=== PATIENT | female | born 1990 | race African-American/Black ===

== ENCOUNTER 2021-09-16 06:17 | Emergency (ER) | payer MEDICAID, OTHER ==
[~2021-09-16] VITALS: Ht 154.9 cm; Wt 97.5 kg
[2021-09-16 06:36] VITALS: BP 109/69
[2021-09-16 09:17] LABS: Urine Bacteria NONE SEEN /hpf (None Seen); Urine Blood Negative /uL (Negative); Urine Mucus FEW (None Seen); Urine Specific Gravity 1.026 (1.001-1.035); Urine WBC 2 /hpf (0 - 5)
== END 2021-09-16 13:46 | disposition left against medical advice (07) ==
LOC: ER 06:17
DX: Z48.815 Encounter for surgical aftercare following surgery on the digestive system (principal); R10.33 Periumbilical pain
CPT/HCPCS: 81001

== ENCOUNTER 2025-01-12 20:49 | Emergency (ER) | payer MEDICAID ==
[~2025-01-12] VITALS: Ht 152.4 cm; Wt 124.0 kg
[2025-01-12] MEDS ORDERED: DIPH25CA66 PO (21:41)
[2025-01-12] MEDS ORDERED: PRED20TA2 PO (21:41)
--- NOTE | 2025-01-12 21:41 | ED.PDOC ---
HPI Allergic reaction HPI Comments 34-YEAR-OLD FEMALE PRESENTS TO ER WITH COMPLAINTS OF RASH X3 DAYS. PATIENT REPORTS THAT SHE HAS BEEN EXPERIENCING A ITCHY RASH TO UPPER BACK WITH RADIATION TOWARDS RIGHT ARMPIT X3 DAYS. STATES THAT SHE HAS BEEN USING TOPICAL "NEOSPORIN" ON THE RASH WITHOUT RELIEF AND STATES THAT THE RASH DEVELOPED "SHORTLY" AFTER SHE STARTED USING A NEW LAUNDRY DETERGENT. PATIENT PRESENTS TO ER AMBULATORY ON ARRIVAL, WITH STEADY GAIT, IN NO DISTRESS. DENIES FEVER, BODY ACHES, CHILLS, NAUSEA/VOMITING, SHORTNESS OF BREATH, KNOWN ALLERGIES OR ANY FURTHER SYMPTOMS/COMPLAINTS Chief Complaint: Rash Time Seen by MD: 20:52 Primary Care Provider: ANJU Lee Notes: Nurses Notes Allergies: Coded Allergies: NO KNOWN ALLERGIES (Unverified , 01/12/25) Home Meds Active Scripts Diphenhydramine Hcl (Benadryl Allergy) 25 Mg Cap, 2 CAP PO Q6HPRN, #30 CAP 0 Refills Prov:MATI TALAMANTES 01/12/25 Prednisone (Prednisone) 20 Mg Tab, 20 MG PO BID for 5 Days, #10 TAB 0 Refills Prov:MATI TALAMANTES 01/12/25 Information Source: Patient Mode of Arrival: Ambulatory Past Medical History Surgical History: Cholecystectomy, Hernia Repair 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 History Family History Family History: Unknown Social History Smoker: Non-Smoker Alcohol: Denies ETOH Use Drugs: Denies Drug Use Lives In: Home Constitutional: denies: chills, diaphoresis, fatigue, fever, malaise, sweats, weakness, others EENTM: denies: blurred vision, double vision, ear bleeding, ear discharge, ear drainage, ear pain, ear ringing, eye pain, eye redness, hearing loss, mouth pain, mouth swelling, nasal discharge, nose bleeding, nose congestion, nose pain, photophobia, tearing, throat pain, throat swelling, voice changes, others Respiratory: denies: cough, hemoptysis, orthopnea, SOB at rest, shortness of breath, SOB with excertion, stridor, wheezing, others Cardiovascular: denies: chest pain, dizzy spells, diaphoresis, Dyspnea on exertion, edema, irregular heart beat, left arm pain, lightheadedness, palpitations, PND, syncope, others Gastrointestinal: denies: abdomen distended, abdominal pain, blood streaked bowels, constipated, diarrhea, dysphagia, difficulty swallowing, hematemesis, melena, nausea, poor appetite, poor fluid intake, rectal bleeding, rectal pain, vomiting, others Genitourinary: denies: abnormal vagina bleeding, burning, dyspareunia, dysuria, flank pain, frequency, hematuria, incontinence, pain, , vagina discharge, urgency, others Neurological: denies: dizziness, fainting, headache, left sided numbness, left sided weakness, numbness, paresthesia, pre-existing deficit, right sided numbness, right sided weakness, seizure, speech problems, tingling, tremors, weakness, others Musculoskeletal: denies: back pain, gout, joint pain, joint swelling, muscle pain, muscle stiffness, neck pain, others Integumetry: reports: others ( STATED IN HPI) Allergic/Immunocompromised: reports: others ( STATED IN HPI) Hematologic/Lymphatic: denies: anemia, blood clots, easy bleeding, easy bruising, swollen glands, others Endocrine: denies: excessive hunger, excessive sweating, excessive thirst, excessive urination, flushing, intolerance to cold, intolerance to heat, unexplained weight gain, unexplained weight loss, others Psychiatric: denies: anxiety, bipolar disorder, depression, hopeless, panic disorder, schizophrenia, sleepless, suicidal, others Physical Exam General Appearance: No Apparent Distress HEENT: Normal ENT Inspection, PERRL/EOMI, Pharynx Normal Neck: Full Range of Motion, Non-Tender, Normal Respiratory: Chest Non-Tender, Lungs Clear, No Accessory Muscle Use, No Respi ratory Distress, Normal Breath Sounds Cardiovascular: No Murmur, No Gallop, Regular Rate/Rhythm Breast Exam: Deferred Gastrointestinal: NOT DONE Genitalia: Deferred Pelvic: Deferred Rectal: Deferred Extremities: Normal capillary refill, Normal range of motion Neurologic: Alert, oil pit attendant II-XII nml as Tested, No Motor Deficits, Normal Affect, Normal Mood, No Sensory Deficits Cerebellar Function: Normal Reflexes: Normal Skin: Dry, Warm, Other (MILD URTICARIA NOTED TO RIGHT UPPER BACK) Peripheral Pulses: 2+ Radial (R), 2+ Radial (L), 2+ Brachial (R), 2+ Brachial (L) Lymphatic: No Adenopathy Was a procedure done? Was a procedure done?: No Sedation Sedation?: No Differential diagnosis (all) Differential Diagnosis: Anaphylaxis, Angioedema, Hypotension X-Ray, Labs, Meds, VS Vital Signs Date Time Temp Pulse Resp B/P (MAP) Pulse Ox O2 Delivery O2 Flow Rate FiO2 01/12/25 21:10 97.6 82 16 119/67 (84) 96 97.6 SOLU-MEDROL 125 MG IM ORDERED BENADRYL 25 MG IM ORDERED PATIENT HAD IMPROVEMENT IN SYMPTOMS AND IN NO DISTRESS PRIOR TO DISCHARGE ADVISED TO DISCONTINUE USE OF NEW LAUNDRY DETERGENT AND NEOSPORIN ADVISED TO DRINK PLENTY OF FLUIDS ADVISED TO FOLLOW UP WITH PCP IN 1-2 DAYS PATIENT VERBALIZED UNDERSTANDING AND AGREEABLE WITH CURRENT PLAN OF CARE ADVISED TO RETURN TO ER IMMEDIATELY IF SYMPTOMS WORSEN Time of 1ST Reevaluation: 21:12 Reevaluation 1ST: N/A Patient Education/Counseling: Diagnosis, Treatment, Prognosis, Need For Follow Up Family Education/Counseling: No Family Present Departure 1 Departure Time of Disposition: 21:32 Impression: Primary Impression: Contact dermatitis Qualified Codes: L23.9 - Allergic contact dermatitis, unspecified cause Disposition: HOME / SELF CARE / HOMELESS Condition: Stable e-Prescriptions Diphenhydramine Hcl (Benadryl Allergy) 25 Mg Cap 2 CAP PO Q6HPRN, #30 CAP 0 Refills Prov: MATI TALAMANTES 01/12/25 Prednisone (Prednisone) 20 Mg Tab 20 MG PO BID for 5 Days, #10 TAB 0 Refills Prov: MATI TALAMANTES 01/12/25 Discharged With: Friend Critical Care Note Critical Care Time?: No Stability Stability form required: No Heart Score Heart Score: Heart Score Response (Comments) Value History N/A 0 EKG N/A 0 Age N/A 0 Risk Factors N/A 0 Troponin N/A 0 Total 0 MATI TALAMANTES Jan 12, 2025 21:41
[2025-01-12] MEDS: diphenhdrAMINE HCL 50 MG/1 ML VL IM ONE (21:48)
[2025-01-12] MEDS: methylPREDNISolone SOD SUCC 125 MG/2 ML VL IM ONE (21:48)
[2025-01-12 21:51] VITALS: BP 119/67; PULSE 82; RESP 16; TEMP 97.6; O2SAT 96
== END 2025-01-12 21:53 | disposition home or self-care (01) ==
LOC: ER 20:49
DX: L23.9 Allergic contact dermatitis, unspecified cause (principal); Z98.890 Other specified postprocedural states; Z90.49 Acquired absence of other specified parts of digestive tract; Z79.52 Long term (current) use of systemic steroids
CPT/HCPCS: 96372; 99284; J1200; J2919